=== PATIENT | male | born 1980 | race Caucasian/White ===

== ENCOUNTER 2019-12-02 09:55 | Outpatient (CLI) | payer BC, SELFPAY ==
--- NOTE | 2019-12-02 11:00 | NEURO_ITS ---
Patient Number: [id number] Impression: # Complains of numbness and pain in left hand. # Bilateral Carpal Tunnel Syndrome, left more than right. # No ulnar neuropathy. # Normal needle/EMG exam. Nerve Conduction Studies Anti Sensory Summary Table Stim Site NR Peak (ms) P-T Amp (?V) Site1 Site2 Delta-P (ms) Dist (cm) Ross (m/s) Left Median Anti Sensory (2-3nd Digit) Wrist 4.9 16.2 Wrist 2-3nd Digit 4.9 14.0 29 Wrist 4.8 11.5 Wrist 2-3nd Digit 4.9 14.0 29 Right Median Anti Sensory (2-3nd Digit) Wrist 4.8 33.3 Wrist 2-3nd Digit 4.8 14.0 29 Wrist 4.5 13.9 Wrist 2-3nd Digit 4.8 14.0 29 Left Radial Anti Sensory (Base 1st Digit) Wrist 2.4 13.6 Wrist Base 1st Digit 2.4 0.0 Right Radial Anti Sensory (Base 1st Digit) Wrist 2.2 16.3 Wrist Base 1st Digit 2.2 0.0 Left Ulnar Anti Sensory (5th Digit) Wrist 2.5 31.0 Wrist 5th Digit 2.5 14.0 56 Right Ulnar Anti Sensory (5th Digit) Wrist 2.4 8.7 Wrist 5th Digit 2.4 14.0 58 Motor Summary Table Stim Site NR Onset (ms) O-P Amp (mV) Site1 Site2 Delta-0 (ms) Dist (cm) Ross (m/s) Left Median Motor (Abd Poll Brev) Wrist 5.6 0.8 Elbow Wrist 5.3 30.0 57 Elbow 10.9 2.2 Right Median Motor (Abd Poll Brev) Wrist 4.0 2.4 Elbow Wrist 6.5 33.0 51 Elbow 10.5 1.6 Left Ulnar Motor (Abd Dig Minimi) Wrist 2.5 11.0 A Elbow Wrist 5.9 32.0 54 A Elbow 8.4 7.9 Right Ulnar Motor (Abd Dig Minimi) Wrist 2.4 6.7 A Elbow Wrist 5.7 33.0 58 A Elbow 8.1 5.2 F Wave Studies NR F-Lat (ms) L-R F-Lat (ms) Left Median (Mrkrs) (Abd Poll Brev) 32.37 0.86 Right Median (Mrkrs) (Abd Poll Brev) 31.51 0.86 Left Ulnar (Mrkrs) (Abd Dig Min) 29.83 0.43 Right Ulnar (Mrkrs) (Abd Dig Min) 30.26 0.43 EMG Side Muscle Nerve Root Ins Act Fibs Amp Dur Recrt Comment Right 1stDorInt Ulnar C8-T1 Nml Nml Nml Nml Nml Right Ext Indicis Radial (Post Int) C7-8 Nml Nml Nml Nml Nml Right Ext Digitorum Radial (Post Int) C7-8 Nml Nml Nml Nml Nml Right BrachioRad Radial C5-6 Nml Nml Nml Nml Nml Right PronatorTeres Median C6-7 Nml Nml Nml Nml Nml Right Abd Poll Brev Median C8-T1 Nml Nml Nml Nml Nml Left 1stDorInt Ulnar C8-T1 Nml Nml Nml Nml Nml Left Ext Indicis Radial (Post Int) C7-8 Nml Nml Nml Nml Nml Left Ext Digitorum Radial (Post Int) C7-8 Nml Nml Nml Nml Nml Left BrachioRad Radial C5-6 Nml Nml Nml Nml Nml Left PronatorTeres Median C6-7 Nml Nml Nml Nml Nml Left Abd Poll Brev Median C8-T1 Nml Nml Nml Nml Nml MTDD
== END 2019-12-02 09:56 | disposition home or self-care (01) ==
LOC: ANHNEURO 09:57
PROVIDERS: PCP Nurse Practitioner Adult Health; Visit Provider Nurse Practitioner Adult Health
DX: R20.2 Paresthesia of skin (principal); G56.03 Carpal tunnel syndrome, bilateral upper limbs
CPT/HCPCS: 95886; 95911

== ENCOUNTER 2020-11-02 09:30 | Outpatient (CLI) | payer BC, SELFPAY ==
--- NOTE | 2020-11-02 11:00 | NEURO_ITS ---
PATIENT NUMBER: [id number] IMPRESSION: # Complains of numbness. 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 # Normal needle exam Nerve Conduction Studies Anti Sensory Summary Table Stim Site NR Peak (ms) P-T Amp (?V) Site1 Site2 Delta-P (ms) Dist (cm) Ross (m/s) Left Sup Fibular Anti Sensory (Ant Lat Mall) 14 cm 3.6 9.4 14 cm Ant Lat Mall 3.6 16.0 44 Right Sup Fibular Anti Sensory (Ant Lat Mall) 14 cm NR 14 cm Ant Lat Mall 16.0 Left Sural Anti Sensory (Lat Mall) Calf 4.3 21.8 Calf Lat Mall 4.3 16.0 37 Right Sural Anti Sensory (Lat Mall) Calf 3.9 17.9 Calf Lat Mall 3.9 16.0 41 Motor Summary Table Stim Site NR Onset (ms) O-P Amp (mV) Site1 Site2 Delta-0 (ms) Dist (cm) Ross (m/s) Left Peroneal Motor (Vastus Med) Ankle 5.9 2.2 Popit Ankle 10.0 43.0 43 Popit 15.9 2.1 Right Peroneal Motor (Vastus Med) Ankle 4.9 4.6 Popit Ankle 9.9 41.0 41 Popit 14.8 4.0 Left Tibial Motor (Abd Lebron Brev) Ankle 8.3 2.2 Knee Ankle 11.2 44.0 39 Knee 19.5 2.4 Right Tibial Motor (Abd Lebron Brev) Ankle 7.3 2.0 Knee Ankle 10.5 44.0 42 Knee 17.8 1.5 F Wave Studies NR F-Lat (ms) L-R F-Lat (ms) Left Peroneal (Mrkrs) (EDB) 61.20 34.15 Right Peroneal (Mrkrs) (EDB) 66.96 34.15 Left Tibial (Mrkrs) (Abd Hallucis) 62.31 1.10 Right Tibial (Mrkrs) (Abd Hallucis) 61.22 1.10 EMG Side Muscle Nerve Root Ins Act Fibs Amp Dur Recrt Comment Right AntTibialis Dp Br Fibular L4-5 Nml Nml Nml Nml Nml Right Gastroc Tibial S1-2 Nml Nml Nml Nml Nml Right Fibularis Long Sup Br Fibular L5-S1 Nml Nml Nml Nml Nml Right Flex Dig Long Tibial L5-S2 Nml Nml Nml Nml Nml Right Ext Dig Brev Dp Br Fibular L5, S1 Nml Nml Nml Nml Nml Left AntTibialis Dp Br Fibular L4-5 Nml Nml Nml Nml Nml Left Gastroc Tibial S1-2 Nml Nml Nml Nml Nml Left Fibularis Long Sup Br Fibular L5-S1 Nml Nml Nml Nml Nml Left Flex Dig Long Tibial L5-S2 Nml Nml Nml Nml Nml Left Ext Dig Brev Dp Br Fibular L5, S1 Nml Nml Nml Nml Nml MTDD
== END 2020-11-02 09:31 | disposition home or self-care (01) ==
PROVIDERS: PCP Nurse Practitioner Adult Health; Visit Provider Nurse Practitioner Adult Health
DX: R20.2 Paresthesia of skin (principal)
CPT/HCPCS: 95886; 95910

== ENCOUNTER 2024-04-14 09:05 | Outpatient (CLI) | payer BC, SELFPAY ==
--- NOTE | ~2024-04-14 | XR_ITS ---
EXAMINATION: XR lumbar spine 2-3V DATE: 04/14/2024 09:23 INDICATION: Low back pain. TECHNIQUE: 3 views of lumbar spine including standing views were obtained. COMPARISON: None. FINDINGS: There is 3 degrees dextrocurvature of lumbar spine. There is 3 mm retrolisthesis of L3 on L 4 and L4 on L5. There is mild chronic anterior wedging of L1-L3 vertebral bodies. There is mildly dec reased disc height at L1-L2, moderately decreased disc height at L2-L3, and severely decreased disc h eight from L3-L4 through L5-S1. There are chronic bilateral L5 pars defects. There is multilevel face t joint osteoarthritis, severe in lower lumbar spine. IMPRESSION: 1. Severe lumbar spondylosis. 2. Chronic bilateral L5 pars defects. Reviewed, dictated and finalized at location [employer]
== END 2024-04-14 09:06 | disposition home or self-care (01) ==
LOC: MICIMG 09:08
DX: M47.816 Spondylosis without myelopathy or radiculopathy, lumbar region (principal)
CPT/HCPCS: 72100

== ENCOUNTER 2024-08-30 10:59 | Emergency (ER) | payer OTHER, BC, SELFPAY ==
[2024-08-30 11:10] VITALS: BP 152/87; PULSE 96; RESP 18; TEMP 35.9; O2SAT 99
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
== END 2024-08-30 12:37 | disposition home or self-care (01) ==
PROVIDERS: Emergency Provider Nurse Practitioner
DX: S61.215A Laceration without foreign body of left ring finger without damage to nail, initial encounter (principal); V47.5XXA Car driver injured in collision with fixed or stationary object in traffic accident, initial encounter; S16.1XXA Strain of muscle, fascia and tendon at neck level, initial encounter; S39.012A Strain of muscle, fascia and tendon of lower back, initial encounter; I10 Essential (primary) hypertension; E78.00 Pure hypercholesterolemia, unspecified; K21.9 Gastro-esophageal reflux disease without esophagitis; E11.9 Type 2 diabetes mellitus without complications
CPT/HCPCS: 12001; 99212; G0463; J2003

== ENCOUNTER 2024-12-15 18:05 | Emergency (ER) | payer SELFPAY ==
[2024-12-15 18:22] VITALS: BP 164/82; PULSE 100; RESP 16; TEMP 36.8; O2SAT 100
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
--- NOTE | 2024-12-15 20:55 | PC.NURSE ---
Pt declined to be seen due to wait time, pt ambulated out in NAD.
== END 2024-12-15 22:34 | disposition left against medical advice (07) ==
PROVIDERS: Emergency Provider Nurse Practitioner Family
DX: F18.90 Inhalant use, unspecified, uncomplicated (principal); E11.9 Type 2 diabetes mellitus without complications; I10 Essential (primary) hypertension
CPT/HCPCS: 99281